=== PATIENT | male | born 1980 | race Caucasian/White ===

== ENCOUNTER 2016-05-08 16:18 | Emergency (ER) | payer OTHER ==
[~2016-05-08 16:18] MED LIST: ATIVAN0.5 MG PO
[2016-05-08] MEDS ORDERED: LIDOCAINE VISC100 ML MM (16:49)
[2016-05-08] MEDS ORDERED: Peridex 473 ML473 ML PO (16:49)
[2016-05-08] MEDS ORDERED: PENICILLIN-VK500 MG PO (16:49)
== END 2016-05-08 16:37 ==
LOC: ED 16:18
DX: K08.89 Other specified disorders of teeth and supporting structures (principal)

== ENCOUNTER 2020-06-11 13:34 | Emergency (ER) | payer OTHER ==
[~2020-06-11] VITALS: Ht 170.1 cm; Wt 61.2 kg
[~2020-06-11 13:34] MED LIST changes: +LIDOCAINE VISC100 ML MM; +PENICILLIN-VK500 MG PO; +Peridex 473 ML473 ML PO
[2020-06-11] MEDS ORDERED: IBUPROFEN600 MG PO (16:13)
== END 2020-06-11 16:15 | disposition home or self-care (01) ==
LOC: ED 13:34
DX: S43.401A Unspecified sprain of right shoulder joint, initial encounter (principal); Z87.891 Personal history of nicotine dependence; Z79.899 Other long term (current) drug therapy; X58.XXXA Exposure to other specified factors, initial encounter; Y93.89 Activity, other specified; Y92.89 Other specified places as the place of occurrence of the external cause; Y99.8 Other external cause status

== ENCOUNTER 2020-11-14 09:13 | Emergency (ER) | payer OTHER ==
[~2020-11-14] VITALS: Ht 170.1 cm
[~2020-11-14 09:13] MED LIST changes: +IBUPROFEN600 MG PO
[2020-11-14] MEDS ORDERED: OSTEO BI-FLEX1 EAC2 PO (09:24)
[2020-11-14] MEDS ORDERED: GUMMI BEAR MUL1 EACH PO (09:25)
[2020-11-14] MEDS ORDERED: PREDNISONE50 MG PO ×2 (10:17→11:06)
== END 2020-11-14 10:29 | disposition home or self-care (01) ==
LOC: ED 09:13
DX: S69.91XA Unspecified injury of right wrist, hand and finger(s), initial encounter (principal); Z79.899 Other long term (current) drug therapy; X50.0XXA Overexertion from strenuous movement or load, initial encounter; Y93.89 Activity, other specified; Y92.89 Other specified places as the place of occurrence of the external cause; Y99.8 Other external cause status